=== PATIENT | male | born 1980 | race Caucasian/White ===

== ENCOUNTER 2020-11-06 15:58 | Emergency (ER) | payer BC ==
[~2020-11-06] VITALS: Ht 187.9 cm; Wt 88.0 kg
[2020-11-06] MEDS ORDERED: Motrin,Rufen800 MG PO (18:42)
[2020-11-06] MEDS ORDERED: PREDNISONE20 M1 PO (18:42)
== END 2020-11-06 19:11 | disposition home or self-care (01) ==
LOC: ED 15:58
DX: M54.16 Radiculopathy, lumbar region (principal); M54.2 Cervicalgia; Z87.891 Personal history of nicotine dependence